=== PATIENT | male | born 1980 | race Caucasian/White ===

== ENCOUNTER 2018-07-11 17:16 | Emergency (ER) | payer BC ==
[2018-07-11 17:38] VITALS: RESP 18
[2018-07-11] MEDS ORDERED: Sodium Chloride 0.9% 1,000 ML IV ONE ×2 (17:54→19:16)
--- NOTE | 2018-07-11 18:00 | C.PDOC ---
History Of Present Illness 38 y/o male, w/PMhx of left renal stone, presents to the ER complaining of left flank pain. Patient states that he was supposed to have his left renal stone removed today in [place]. However, he was having continued pain so he came to the ER. Denies having dysuria, hematuria, fever, and chills. Time Seen by Provider: 07/11/18 17:49 Chief Complaint (Nursing): Male Genitourinary History Per: Patient History/Exam Limitations: no limitations Onset/Duration Of Symptoms: Days Current Symptoms Are (Timing): Still Present Severity: Moderate Past Medical History Reviewed: Historical Data, Nursing Documentation, Vital Signs Vital Signs: Last Vital Signs Temp 97.7 F 07/11/18 17:37 Pulse 67 07/11/18 18:20 Resp 18 07/11/18 18:20 BP 144/84 07/11/18 18:20 Pulse Ox 100 07/11/18 20:33 - Medical History PMH: Hypercholesterolemia, Kidney Stones Surgical History: No Surg Hx Family History: States: No Known Family Hx - Social History Hx Alcohol Use: No Hx Substance Use: No - Immunization History Hx Tetanus Toxoid Vaccination: No Hx Influenza Vaccination: No Hx Pneumococcal Vaccination: No Review Of Systems Except As Marked, All Systems Reviewed And Found Negative. Constitutional: Negative for: Fever, Chills Musculoskeletal: Positive for: Other (flank pain) Physical Exam - Physical Exam Appears: Non-toxic, No Acute Distress Skin: Normal Color, Warm, Dry Head: Atraumatic, Normacephalic Eye(s): bilateral: Normal Inspection Nose: Normal Oral Mucosa: Moist Neck: Supple Chest: Symmetrical Cardiovascular: Rhythm Regular Respiratory: Normal Breath Sounds, No Rales, No Rhonchi, No Wheezing Gastrointestinal/Abdominal: Normal Exam, Soft, No Tenderness, No Guarding, No Rebound Extremity: Normal ROM Neurological/Psych: Oriented x3, Normal Speech ED Course And Treatment - Laboratory Results Result Diagrams: 07/11/18 18:15 07/11/18 18:15 Lab Interpretation: Abnormal (UA 337 RBC's) O2 Sat by Pulse Oximetry: 100 (RA) Pulse Ox Interpretation: Normal Progress Note: Case discussed with Dr. Mars. Dr. Mars is requesting that CT Scan and Fluids be ordered. Reevaluation Time: 20:33 (pain free) Reassessment Condition: Improved - Physician Consult Information Outcome Of Conversation: 2030: 2nd discussion w Dr Omer- ok to d/c home Medical Decision Making Medical Decision Making: showering of powder/dust/small stones from lithodrypsy of L renal staghorn calculus today improved with high volume IVF's normal labs ok for d/c per Urology- Dr. Omer. Disposition Doctor Will See Patient In The: Office Counseled Patient/Family Regarding: Studies Performed, Diagnosis - Disposition Disposition: HOME/ ROUTINE Disposition Time: 20:34 Condition: GOOD Forms: [facility] (Hebrew) - Clinical Impression Clinical Impression: Renal colic on left side - Scribe Statement The provider has reviewed the documentation as recorded by the Brainibe Nicki Narvaez Provider Attestation: All medical record entries made by the Scribe were at my direction and personally dictated by me. I have reviewed the chart and agree that the record accurately reflects my personal performance of the history, physical exam, medical decision making, and the department course for this patient. I have also personally directed, reviewed, and agree with the discharge instructions and disposition.
[2018-07-11] MEDS ORDERED: Morphine 4 MG/ML VIAL ONE (18:02)
[2018-07-11 18:18] LABS: BASO % 0.4 % (0.0-2.0); EOS % 0.1 % (0.0-4.0); HEMOGLOBIN 16.3 g/dL (12.0-18.0); LYMPH # 0.9 K/uL (1.0-4.3); LYMPH % 10.1 % (20.0-40.0); MEAN CELL VOLUME 74.1 fL (80.0-94.0); MEAN CORPUSCULAR HEMOGLOBIN 24.8 pg (27.0-31.0); MEAN CORPUSCULAR HGB CONC 33.4 g/dL (33.0-37.0); MEAN PLATELET VOLUME 8.9 fL (7.2-11.7); MONO # 0.4 K/uL (0.0-0.8); MONO % 4.2 % (0.0-10.0); NEUT # 7.3 K/uL (1.8-7.0); NEUT % 85.2 % (50.0-75.0); NRBC % 0.2 % (0.0-2.0); RBC 6.58 Mil/uL (4.40-5.90); RED CELL DISTRIBUTION WIDTH 14.2 % (11.5-14.5); WHITE BLOOD COUNT 8.5 K/uL (4.8-10.8)
[2018-07-11 18:35] LABS: ALB/GLOB RATIO 1.3 (1.0-2.1); ALBUMIN 4.7 g/dL (3.5-5.0); ALT/SGPT 51 U/L (21-72); AST/SGOT 27 U/L (17-59); BLOOD UREA NITROGEN 17 mg/dL (9-20); GFR NON-AFRICAN AMERICAN > 60; LIPASE 59 U/L (23-300)
[2018-07-11 19:03] LABS: URINE BILIRUBIN NEGATIVE (NEGATIVE); URINE BLOOD 3+ (NEGATIVE); URINE CLARITY Hazy (Clear); URINE COLOR Amber (YELLOW); URINE GLUCOSE (UA) NORMAL (Normal); URINE LEUKOCYTE ESTERASE NEG Leu/uL (Negative); URINE PROTEIN 2+ mg/dL (NEGATIVE); URINE URIC ACID CRYSTALS OCC /hpf (<OCC); URINE UROBILINOGEN NORMAL mg/dL (0.2-1.0)
[2018-07-11 20:59] VITALS: BP 140/80; PULSE 77; TEMP 98; O2SAT 98
--- NOTE | 2018-07-12 08:31 | CT ---
Date of service: 07/11/2018 PROCEDURE: CT Abdomen and Pelvis without intravenous contrast HISTORY: L flank, s/p lithotrypsy today COMPARISON: None. TECHNIQUE: Without contrast.. Contrast dose: 0 Radiation dose: Total exam DLP = 443.48 mGy-cm. This CT exam was performed using one or more of the following dose reduction techniques: Automated exposure control, adjustment of the mA and/or kV according to patient size, and/or use of iterative reconstruction technique. FINDINGS: LOWER THORAX: Unremarkable. LIVER: Mild diffuse fatty infiltration of the liver. Diffusely diminished attenuation. Smooth contour. No mass. No biliary dilatation. Normal size. GALLBLADDER AND BILE DUCTS: Unremarkable. PANCREAS: Unremarkable. No gross lesion or ductal dilatation. SPLEEN: Unremarkable. ADRENALS: Unremarkable. No mass. KIDNEYS AND URETERS: Left staghorn calculus. Multiple small unattached calculi in left renal collecting system. Mild left hydronephrosis. Left hydroureter. 4 mm calculus in the proximal left ureter. Mild left periureteric stranding. Multiple small calculi within the distal left ureter just proximal to the ureterovesical junction, consistent with Steinstrasse status post ESWL. No perinephric fluid. Unremarkable right kidney. 2.3 cm left mid renal cortical cyst. No right renal mass. . VASCULATURE: Unremarkable. No aortic aneurysm. BOWEL: Unremarkable. No obstruction. No gross mural thickening. APPENDIX: Unremarkable. Normal appendix. PERITONEUM: Unremarkable. No free fluid. No free air. LYMPH NODES: Unremarkable. No enlarged lymph nodes. BLADDER: 3 mm calculus protruding into the right ureteral orifice or laying dependently at the right bladder base. Tiny calculus or calculi at left bladder base, possibly at ureteral orifice. No dilatation of the right renal collecting system. REPRODUCTIVE: Normal prostate BONES: No acute fracture. OTHER FINDINGS: None. IMPRESSION: Left staghorn renal calculus. 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 Possible calculi at bilateral ureteral orifices versus dependent layering calculi within urinary bladder. Fatty liver. Left renal cyst.
== END 2018-07-11 20:59 | disposition home or self-care (01) ==
LOC: C.ER 17:16
DX: N23 Unspecified renal colic (principal); E78.00 Pure hypercholesterolemia, unspecified
CPT/HCPCS: 74176; 80053; 81001; 82948; 83690; 85025; 96361; 96374; 96375; 99285; J1885; J2270; J7030

== ENCOUNTER 2018-07-12 09:10 | Day surgery (SDC) | payer BC ==
[2018-07-12] MEDS ORDERED: Sodium Chloride 0.9% 1,000 ML IV ONE (09:59)
[2018-07-12 10:19] LABS: BASO % 0.4 % (0.0-2.0); EOS % 0.4 % (0.0-4.0); HEMOGLOBIN 15.8 g/dL (12.0-18.0); LYMPH # 1.2 K/uL (1.0-4.3); LYMPH % 14.2 % (20.0-40.0); MEAN CELL VOLUME 74.3 fL (80.0-94.0); MEAN CORPUSCULAR HEMOGLOBIN 24.8 pg (27.0-31.0); MEAN CORPUSCULAR HGB CONC 33.4 g/dL (33.0-37.0); MEAN PLATELET VOLUME 9.1 fL (7.2-11.7); MONO # 0.6 K/uL (0.0-0.8); MONO % 7.4 % (0.0-10.0); NEUT # 6.3 K/uL (1.8-7.0); NEUT % 77.6 % (50.0-75.0); RBC 6.36 Mil/uL (4.40-5.90); RED CELL DISTRIBUTION WIDTH 14.4 % (11.5-14.5); WHITE BLOOD COUNT 8.1 K/uL (4.8-10.8)
--- NOTE | 2018-07-12 10:22 | C.PDOC ---
History Of Present Illness 38 year old male presents to the ED complaining of worsening flank pain s/p left kidney stone lithotripsy last night by Dr. Mars. He now reports persistent pain, nausea, and vomiting. States he spoke to urologist on the phone and was referred to the ER. Otherwise he denies any fever, chills, diarrhea, or other complaints. Time Seen by Provider: 07/12/18 09:29 Chief Complaint (Nursing): Abdominal Pain History Per: Patient History/Exam Limitations: no limitations Onset/Duration Of Symptoms: Hrs Current Symptoms Are (Timing): Still Present Radiation Of Pain To:: Flank Quality Of Discomfort: "Pain" Associated Symptoms: Nausea, Vomiting Past Medical History Reviewed: Historical Data, Nursing Documentation, Vital Signs Vital Signs: Last Vital Signs Temp 97.7 F 07/12/18 16:01 Pulse 99 H 07/12/18 16:01 Resp 20 07/12/18 16:01 BP 133/86 07/12/18 16:01 Pulse Ox 99 07/12/18 16:01 - Medical History PMH: Hypercholesterolemia, Kidney Stones Other Surgeries: Left kidney stone lithotripsy Family History: States: Unknown Family Hx - Social History Hx Alcohol Use: No Hx Substance Use: No - Immunization History Hx Tetanus Toxoid Vaccination: No Hx Influenza Vaccination: No Hx Pneumococcal Vaccination: No Review Of Systems Except As Marked, All Systems Reviewed And Found Negative. Gastrointestinal: Positive for: Nausea, Vomiting Musculoskeletal: Positive for: Other (Left flank pain) Physical Exam - Physical Exam Appears: Non-toxic, No Acute Distress Skin: Normal Color, Warm, Dry Head: Atraumatic, Normacephalic Eye(s): bilateral: Normal Inspection, PERRL, EOMI Nose: Normal Oral Mucosa: Moist Neck: Normal ROM Chest: Symmetrical Cardiovascular: Rhythm Regular, No Murmur Respiratory: Normal Breath Sounds, No Rales, No Rhonchi, No Wheezing Gastrointestinal/Abdominal: Bowel Sounds (active), Soft, No Tenderness, No Guarding Back: CVA Tenderness (left-sided), No Vertebral Tenderness Extremity: Bilateral: Atraumatic, Normal Color And Temperature, Normal ROM Neurological/Psych: Oriented x3, Normal Speech, Normal Cranial Nerves ED Course And Treatment - Laboratory Results Result Diagrams: 07/12/18 10:08 07/12/18 10:08 O2 Sat by Pulse Oximetry: 97 (RA) Pulse Ox Interpretation: Normal - CT Scan/US Renal US Other Rad Studies (CT/US): Read By Radiologist, Radiology Report Reviewed CT/US Interpretation: Accession No. : [id number]. Patient Name / ID : GABY MACIAS / [id number]. Exam Date : 07/12/2018 10:49:05 ( Approved ). Study Comment : Sex / Age : M / 38Y. Creator : Flavio Perla MD. Dictator : Flavio Perla MD. Tap Out Operator : Retail Pharmacist : Flavio Perla MD. Approver2 : Report Date : 07/12/2018 11:15:50. My Comment : . Date of service: 07/12/2018. PROCEDURE: Ultrasound of the Kidneys. HISTORY: left side pain. COMPARISON: Correlation is made to CT scan of the abdomen and pelvis dated 07/11/2018. TECHNIQUE: Sonogram of the kidneys. FINDINGS: RIGHT KIDNEY: Measures: 12.6 x 5.5 x 6.2 cm. 1.3 x 0.8 x 1.2 cm midpole cyst. Nonobstructive midpole calculus measuring 4 mm. Normal in size, contour and echogenicity. No solid mass lesion or hydronephrosis visualized. LEFT KIDNEY: Measures: 13.6 x 7.0 x 7.3 cm. 2.2 x 2.1 x 1.9 cm upper pole cyst. Multiple calculi, largest lower pole nonobstructing calculus measuring 2.6 cm. Normal in size, contour and echogenicity. No solid mass lesion or hydronephrosis visualized. OTHER FINDINGS: Hepatic steatosis. IMPRESSION: As on recent CT scan, bilateral nonobstructive nephrolithiasis, with the largest calculus measuring 2.6 cm in the left lower pole. No hydronephrosis. Bilateral renal cysts. Hepatic steatosis. Medical Decision Making Medical Decision Making: Initial Plan: --CMP --CBC --Lipase --UA --Urine culture --IV fluids --Toradol 30 mg IVP --Zofran 4 mg IVP --Pepcid 20 mg IVP --Renal ultrasound Progress/Updates: Discussed w/ Dr. Mars, who will take patient to the OR for stent placement. Patient accepted for admission for same-day surgery. Disposition Discussed With Dr.: Lisa Mars Doctor Will See Patient In The: Hospital Counseled Patient/Family Regarding: Studies Performed, Diagnosis - Disposition Disposition: HOSPITALIZED Disposition Time: 10:21 Condition: GOOD - Clinical Impression Clinical Impression: Renal stone - Scribe Statement The provider has reviewed the documentation as recorded by the Antonio Horan Provider Attestation: All medical record entries made by the Antonio were at my direction and personally dictated by me. I have reviewed the chart and agree that the record accurately reflects my personal performance of the history, physical exam, medical decision making, and the department course for this patient. I have also personally directed, reviewed, and agree with the discharge instructions and disposition.
[2018-07-12 10:46] LABS: ALB/GLOB RATIO 1.4 (1.0-2.1); ALBUMIN 4.6 g/dL (3.5-5.0); ALT/SGPT 40 U/L (21-72); AST/SGOT 26 U/L (17-59); BLOOD UREA NITROGEN 16 mg/dL (9-20); CALCIUM 9.5 mg/dl (8.6-10.4); GFR NON-AFRICAN AMERICAN > 60; LIPASE 44 U/L (23-300)
--- NOTE | 2018-07-12 11:17 | US ---
Date of service: 07/12/2018 PROCEDURE: Ultrasound of the Kidneys HISTORY: left side pain COMPARISON: Correlation is made to CT scan of the abdomen and pelvis dated 07/11/2018. TECHNIQUE: Sonogram of the kidneys. FINDINGS: RIGHT KIDNEY: Measures: 12.6 x 5.5 x 6.2 cm. 1.3 x 0.8 x 1.2 cm midpole cyst. Nonobstructive midpole calculus measuring 4 mm. Normal in size, contour and echogenicity. No solid mass lesion or hydronephrosis visualized. LEFT KIDNEY: Measures: 13.6 x 7.0 x 7.3 cm. 2.2 x 2.1 x 1.9 cm upper pole cyst. Multiple calculi, largest lower pole nonobstructing calculus measuring 2.6 cm. Normal in size, contour and echogenicity. No solid mass lesion or hydronephrosis visualized. OTHER FINDINGS: Hepatic steatosis. IMPRESSION: As on recent CT scan, bilateral nonobstructive nephrolithiasis, with the largest calculus measuring 2.6 cm in the left lower pole. No hydronephrosis. Bilateral renal cysts. Hepatic steatosis.
[2018-07-12] MEDS ORDERED: Ciprofloxacin 400mg/200ml D5W 400 MG/200 ML BAG IVPB ONE (12:48)
[2018-07-12] MEDS ORDERED: Iohexol 240 (50 ml) ONE (12:48)
[2018-07-12] MEDS ORDERED: Lidocaine 2% Jelly (Uro-Jet) ONE (12:49)
[2018-07-12] MEDS ORDERED: Midazolam 2 MG/2 ML VIAL ONE (13:21)
[2018-07-12] MEDS ORDERED: Propofol 10 mg/ml Inj (20 ML) ONE (13:24)
[2018-07-12] MEDS ORDERED: HYDROmorphone 0.5 mg/0.5 ml ISec IVP PRN (14:08)
--- NOTE | 2018-07-12 14:33 | RAD ---
Date of service: 07/12/2018 PROCEDURE: Intraoperative Fluoroscopy. HISTORY: Left URETERAL STONE FINDINGS: Fluoroscopic assistance was provided for left nephroureteral stent placement. Please refer to the operative report from KRYSTIN Barfield.
[2018-07-12 16:44] VITALS: BP 133/86; PULSE 99; RESP 20; TEMP 97.7
[2018-07-12 18:11] VITALS: O2SAT 97
--- NOTE | 2018-07-15 09:27 | RAD ---
Date of service: 07/12/2018 HISTORY: LT URETERAL STONE COMPARISON: Comparison made with prior CT scan abdomen pelvis and plain film radiographs of the abdomen dated 07/11/2018 and dated 07/03/2018 respectively. FINDINGS: Interval placement left ureteral stent. Previously noted renal calculi the largest of which was a staghorn calculus located in the lower and mid pole calices poorly seen on this exam left-sided staghorn calculus is poorly seen. BONES: Normal. OTHER FINDINGS: The transverse colon is mildly distended with air. IMPRESSION: In situ left ureteral stent. Previously noted left-sided renal calculi poorly delineated. Follow-up CT scan could be performed if further evaluation is required.
--- NOTE | 2018-07-19 04:04 | OP ---
PROCEDURE DATE: 07/12/2018 PREOPERATIVE DIAGNOSIS: Ureteral stone obstructing the ureter with large, multiple stones in the left kidney. CT scan revealed the multiple stones in the lower ureter of the left side which were obstructing the ureter. POSTOPERATIVE DIAGNOSIS: Ureteral stone obstructing the ureter with large, multiple stones in the left kidney. CT scan revealed the multiple stones in the lower ureter of the left side which were obstructing the ureter. PROCEDURE: Cystoscopic insertion of left stent. DESCRIPTION: While the patient in lithotomy position and after given Cipro IV, genitalia prepped and draped in sterile fashion. Cysto done which revealed multiple fragments of small, tiny stones in the bladder which irrigated out. There was one stone impacted into the meatus of the left ureter. After a few attempts, sensor wire inserted and cloudy urine, infected, started draining around. A 16 Norwegian double-J stent inserted and coiled up into the left kidney down to the bladder. X-ray done. The patient tolerated the procedure well and transferred to the recovery room in stable condition. Lisa Mars MD
== END 2018-07-12 16:15 | disposition home or self-care (01) ==
LOC: C.ER 09:10 → C.SDS 10:24
PROVIDERS: ATTEND Specialist
DX: N20.1 Calculus of ureter (principal); N28.1 Cyst of kidney, acquired
CPT/HCPCS: 52332; 74018; 76770; 80053; 83690; 85025; 96361; 96374; 96375; 99285; C1758; C1769; C2617; J0744; J1885; J2405; J2704; J7030